=== PATIENT | male | born 1985 | race Caucasian/White ===

== ENCOUNTER → 2023-03-25 | Outpatient (CLI) | payer BC ==
[~2023-03-25] MED LIST: DAYPRO600 M1 PO
[2023-03-25 15:18] LABS: BASO % 0.4 % (0.0-1.0); EOS # 0.1 10*3/uL (0.0-0.4); EOS % 0.7 % (1.0-4.0); HEMATOCRIT 45.3 % (42.0-52.0); LYMPH # 1.9 10*3/uL (1.3-4.4); LYMPH % 26.1 % (27.0-41.0); MEAN CELL VOLUME 83.4 fl (80.0-94.0); MEAN CORPUSCULAR HGB 29.1 pg (27.0-31.0); MEAN CORPUSCULAR HGB CONC 34.9 g/dl (33.0-37.0); MONO # 0.4 10*3/uL (0.1-1.0); MONO % 5.7 % (3.0-9.0); NEUT % 66.7 % (47.0-73.0); PLATELET COUNT AUTOMATED 181 10*3/uL (130-400); RED BLOOD COUNT 5.43 10*6/uL (4.50-5.90); RED CELL DISTRI WIDTH 12.8 % (0-14.5); WHITE BLOOD COUNT 7.4 10*3/uL (4.8-10.8)
[2023-03-25 15:27] LABS: URINE CREATININE RANDOM 229.96 mg/dL
[2023-03-25 15:37] LABS: ALKALINE PHOSPHATASE 57 U/L (46-116); BUN 9 mg/dl (9-23); CHLORIDE 107 mmol/L (98-107); POTASSIUM 3.5 mmol/L (3.4-5.1); SGPT/ALT 31 U/L (10-49); TOTAL PROTEIN 7.3 gm/dL (6.0-8.0)
== END | disposition home or self-care (01) ==
LOC: US 14:30 → LAB 14:33
PROVIDERS: ATTEND Nurse Practitioner Family
DX: Z13.29 Encounter for screening for other suspected endocrine disorder (principal); R19.00 Intra-abdominal and pelvic swelling, mass and lump, unspecified site; E11.9 Type 2 diabetes mellitus without complications

== ENCOUNTER 2024-11-19 00:07 | Emergency (ER) | payer BC ==
[~2024-11-19] VITALS: Ht 182.8 cm; Wt 93.0 kg
[2024-11-19 00:19] VITALS: BP 132/87
[2024-11-19] MEDS ORDERED: Acetaminophen/Hydrocodone 5 MG/325 MG TABLET PO ONE ×3 (00:45→02:30)
[2024-11-19] MEDS ORDERED: HYDROCODONE-AC1 EAC1 PO (02:28)
== END 2024-11-19 02:13 | disposition home or self-care (01) ==
LOC: ED 00:07
DX: S82.54XA Nondisplaced fracture of medial malleolus of right tibia, initial encounter for closed fracture (principal); Z88.0 Allergy status to penicillin; Z88.2 Allergy status to sulfonamides; Z88.1 Allergy status to other antibiotic agents; Z88.8 Allergy status to other drugs, medicaments and biological substances; Z91.040 Latex allergy status; Z91.030 Bee allergy status; Z98.890 Other specified postprocedural states; W19.XXXA Unspecified fall, initial encounter; Y93.89 Activity, other specified; Y92.89 Other specified places as the place of occurrence of the external cause; Y99.8 Other external cause status

== ENCOUNTER → 2024-11-20 | Outpatient (CLI) | payer BC ==
[~2024-11-20] MED LIST changes: +HYDROCODONE-AC1 EAC1 PO
== END | disposition home or self-care (01) ==
LOC: RAD 11:53
PROVIDERS: ATTEND Orthopaedic Surgery
DX: S82.831A Other fracture of upper and lower end of right fibula, initial encounter for closed fracture (principal); X58.XXXA Exposure to other specified factors, initial encounter; Y93.89 Activity, other specified; Y92.89 Other specified places as the place of occurrence of the external cause; Y99.8 Other external cause status

== ENCOUNTER → 2024-11-21 | Day surgery (SDC) | payer BC ==
[2024-11-20 13:33] LABS: BUN 11 mg/dl (9-23); CHLORIDE 103 mmol/L (98-107)
[~2024-11-21] VITALS: Ht 182.8 cm; Wt 93.0 kg
[2024-11-21] VITALS (7 sets, daily range): BP systolic 110–130; BP diastolic 73–88
[~2024-11-21] MED LIST changes: +ACETAMINOPHEN 100 ML IV ONE; +Clindamycin Phosphate 50 ML IV ONE; +Dexamethasone Sodium Phospha 4 MG/ML VIAL IV ONE; +HYDROmorphONE Hydrochloride 0.5 MG/0.5 ML SYRINGE IV PRN; +HYDROmorphONE Hydrochloride 0.5 MG/0.5 ML SYRINGE ONE; +Ketorolac Tromethamine 30 MG/ML VIAL IV PRN; +Ketorolac Tromethamine 30 MG/ML VIAL ONE; +Lactated Ringer's Solution 1,000 ML IV ONE; +Lidocaine Hydrochloride 5 ML VIAL IV ONE; +Midazolam Hydrochloride 2 MG/2 ML VIAL IV ONE; +Ondansetron Hydrochloride 4 MG/2 ML VIAL IV ONE; +PROPOFOL 200 MG/20 ML VIAL IV ONE; +Ropivacaine Hydrochloride 5 MG/ML 20 ML AMP IJ ONE; +Succinylcholine Chloride 200 MG/10 ML SYRINGE IV ONE; +fentaNYL CITRATE 100 MCG/2 ML VIAL IV ONE
== END | disposition home or self-care (01) ==
LOC: SDC 01:27
PROVIDERS: ATTEND Orthopaedic Surgery
DX: S82.841A Displaced bimalleolar fracture of right lower leg, initial encounter for closed fracture (principal); S82.861A Displaced Maisonneuve's fracture of right leg, initial encounter for closed fracture; S82.51XA Displaced fracture of medial malleolus of right tibia, initial encounter for closed fracture; S93.431A Sprain of tibiofibular ligament of right ankle, initial encounter; S82.839A Other fracture of upper and lower end of unspecified fibula, initial encounter for closed fracture; I10 Essential (primary) hypertension; F41.9 Anxiety disorder, unspecified; E11.9 Type 2 diabetes mellitus without complications; G89.18 Other acute postprocedural pain; F10.90 Alcohol use, unspecified, uncomplicated; Z98.52 Vasectomy status; Z98.890 Other specified postprocedural states; Z88.2 Allergy status to sulfonamides; Z88.0 Allergy status to penicillin; Z88.1 Allergy status to other antibiotic agents; Z88.8 Allergy status to other drugs, medicaments and biological substances; X58.XXXA Exposure to other specified factors, initial encounter; Y93.89 Activity, other specified; Y92.89 Other specified places as the place of occurrence of the external cause; Y99.8 Other external cause status

== ENCOUNTER → 2024-12-01 | Outpatient (CLI) | payer BC ==
[~2024-12-01] MED LIST changes: -ACETAMINOPHEN 100 ML IV ONE; -Clindamycin Phosphate 50 ML IV ONE; -Dexamethasone Sodium Phospha 4 MG/ML VIAL IV ONE; -HYDROmorphONE Hydrochloride 0.5 MG/0.5 ML SYRINGE IV PRN; -HYDROmorphONE Hydrochloride 0.5 MG/0.5 ML SYRINGE ONE; -Ketorolac Tromethamine 30 MG/ML VIAL IV PRN; -Ketorolac Tromethamine 30 MG/ML VIAL ONE; -Lactated Ringer's Solution 1,000 ML IV ONE; -Lidocaine Hydrochloride 5 ML VIAL IV ONE; -Midazolam Hydrochloride 2 MG/2 ML VIAL IV ONE; -Ondansetron Hydrochloride 4 MG/2 ML VIAL IV ONE; -PROPOFOL 200 MG/20 ML VIAL IV ONE; -Ropivacaine Hydrochloride 5 MG/ML 20 ML AMP IJ ONE; -Succinylcholine Chloride 200 MG/10 ML SYRINGE IV ONE; -fentaNYL CITRATE 100 MCG/2 ML VIAL IV ONE
== END | disposition home or self-care (01) ==
LOC: ORTHO 00:19
PROVIDERS: ATTEND Orthopaedic Surgery
DX: S82.54XD Nondisplaced fracture of medial malleolus of right tibia, subsequent encounter for closed fracture with routine healing (principal); S82.864D Nondisplaced Maisonneuve's fracture of right leg, subsequent encounter for closed fracture with routine healing; S93.431D Sprain of tibiofibular ligament of right ankle, subsequent encounter; X58.XXXD Exposure to other specified factors, subsequent encounter

== ENCOUNTER → 2024-12-29 | Outpatient (CLI) | payer BC | END | disposition home or self-care (01) | LOC: ORTHO 02:18 | PROVIDERS: ATTEND Orthopaedic Surgery | DX: S82.54XD Nondisplaced fracture of medial malleolus of right tibia, subsequent encounter for closed fracture with routine healing (principal); S82.864D Nondisplaced Maisonneuve's fracture of right leg, subsequent encounter for closed fracture with routine healing; S93.431D Sprain of tibiofibular ligament of right ankle, subsequent encounter; X58.XXXD Exposure to other specified factors, subsequent encounter ==

== ENCOUNTER → 2025-02-09 | Outpatient (CLI) | payer BC | END | disposition home or self-care (01) | LOC: ORTHO 00:18 | PROVIDERS: ATTEND Orthopaedic Surgery | DX: S82.54XD Nondisplaced fracture of medial malleolus of right tibia, subsequent encounter for closed fracture with routine healing (principal); S82.864D Nondisplaced Maisonneuve's fracture of right leg, subsequent encounter for closed fracture with routine healing; S93.431D Sprain of tibiofibular ligament of right ankle, subsequent encounter; X58.XXXD Exposure to other specified factors, subsequent encounter ==

== ENCOUNTER → 2025-07-09 | Outpatient (CLI) | payer BC | END | disposition home or self-care (01) | LOC: ORTHO 02:04 | PROVIDERS: ATTEND Orthopaedic Surgery | DX: S82.54XD Nondisplaced fracture of medial malleolus of right tibia, subsequent encounter for closed fracture with routine healing (principal); S82.854D Nondisplaced trimalleolar fracture of right lower leg, subsequent encounter for closed fracture with routine healing; S93.431D Sprain of tibiofibular ligament of right ankle, subsequent encounter; M19.071 Primary osteoarthritis, right ankle and foot; M85.871 Other specified disorders of bone density and structure, right ankle and foot; M77.8 Other enthesopathies, not elsewhere classified; X58.XXXD Exposure to other specified factors, subsequent encounter ==

== ENCOUNTER → 2025-07-26 | Day surgery (SDC) | payer BC ==
[2025-07-23 11:07] LABS: BUN 13 mg/dl (9-23)
[~2025-07-26] VITALS: Ht 182.8 cm; Wt 83.9 kg
[~2025-07-26] MED LIST changes: +Bupivacaine Hydrochloride/Ep2 30 ML VIAL ONE; +Lactated Ringer's Solution 1,000 ML IV ONE; +Lidocaine Hydrochloride 2% 5 ML SDV IV ONE; +Midazolam Hydrochloride 2 MG/2 ML VIAL IV ONE; +OZEMPIC1 MG/0.71 SQ; +Ondansetron Hydrochloride 4 MG/2 ML VIAL IV ONE; +PROPOFOL 200 MG/20 ML VIAL IV ONE; +ZOLOFT25 MG PO
[2025-07-26 06:30] VITALS: BP 119/86
[2025-07-26 08:11] VITALS: BP 92/52
[2025-07-26 08:23] VITALS: BP 87/49
[2025-07-26 08:38] VITALS: BP 91/55
[2025-07-26 08:53] VITALS: BP 111/75
[2025-07-26 09:06] VITALS: BP 115/77
== END | disposition home or self-care (01) ==
LOC: SDC 07-24 08:00
PROVIDERS: ATTEND Orthopaedic Surgery
DX: Z47.2 Encounter for removal of internal fixation device (principal); S82.54XD Nondisplaced fracture of medial malleolus of right tibia, subsequent encounter for closed fracture with routine healing; S82.854D Nondisplaced trimalleolar fracture of right lower leg, subsequent encounter for closed fracture with routine healing; E11.9 Type 2 diabetes mellitus without complications; F41.9 Anxiety disorder, unspecified; Z88.1 Allergy status to other antibiotic agents; Z88.0 Allergy status to penicillin; Z79.899 Other long term (current) drug therapy; Z88.8 Allergy status to other drugs, medicaments and biological substances; X58.XXXD Exposure to other specified factors, subsequent encounter